=== PATIENT | female | born 1970 | race Caucasian/White ===

== ENCOUNTER 2018-07-20 09:03 | Emergency (ER) | payer BC ==
--- NOTE | 2018-07-20 09:43 | EDM.PDOC ---
ED HPI GENERAL MEDICAL PROBLEM - General Chief Complaint: Cardiovascular Problem Stated Complaint: HEART PALPITATIONS/SOB Time Seen by Provider: 07/20/18 09:20 Source of Information: Reports: Patient History Limitations: Reports: No Limitations - History of Present Illness INITIAL COMMENTS - FREE TEXT/NARRATIVE: 47-year-old female was been feeling palpitations for the last 5 days, this morning while at work felt like she was having more of them and became lightheaded so came in to be checked. She was placed on a monitor and is having fairly frequent PVCs. She doesn't remember having these in the past, only the last 5 days and does admit that she was kayaking yesterday and drinking beer but drink water after she got home. No recent illness, no chest pain, no nausea or vomiting but she does feel short of breath and anxious with the palpitations. Onset: Gradual (Started 5 or 6 days ago but seemed to be worsening) Associated Symptoms: Reports: Shortness of Breath, Other (Dizziness) - Related Data Allergies Allergy/AdvReac Type Severity Reaction Status Date / Time No Known Allergies Allergy Verified 07/20/18 09:11 Home Meds: Home Meds Metoprolol Tartrate [Lopressor] 25 mg PO Q12HR #20 tab 07/20/18 [Rx] Naproxen 375 mg PO DAILY 07/20/18 [History] Past Medical History HEENT History: Reports: Impaired Vision Genitourinary History: Reports: None STUDENT OUTREACH COORDINATOR History: Reports: Musculoskeletal History: Reports: Back Pain, Chronic Psychiatric History: Reports: Depression Endocrine/Metabolic History: Reports: Obesity/BMI 30+ - Past Surgical History Head Surgeries/Procedures: Reports: None GI Surgical History: Reports: Appendectomy Female Surgical History: Reports: Section Endocrine Surgical History: Reports: None Musculoskeletal Surgical History: Reports: None Dermatological Surgical History: Reports: None Social & Family History - Family History Cardiac: Reports: Afib, Arrhythmia, Blood Clots/VTE/DVT, Bypass, Heart Failure, High Cholesterol, Hypertension, Prior Cardiac Arrest - Tobacco Use Smoking Status *Q: Former Smoker Used Tobacco, but Quit: Yes Month/Year Tobacco Last Used: 2005 - Caffeine Use Caffeine Use: Reports: Energy Drinks - Alcohol Use Days Per Week of Alcohol Use: 7 Number of Drinks Per Day: 2 Total Drinks Per Week: 14 - Recreational Drug Use Recreational Drug Use: No ED ROS GENERAL - Review of Systems Review Of Systems: See Below Constitutional: Denies: Fever, Chills Respiratory: Reports: Shortness of Breath Cardiovascular: Reports: Palpitations. Denies: Chest Pain GI/Abdominal: Denies: Abdominal Pain, Nausea, Vomiting Skin: Reports: No Symptoms Neurological: Reports: No Symptoms ED EXAM, GENERAL - Physical Exam Exam: See Below Exam Limited By: No Limitations General Appearance: Alert, Anxious Eye Exam: Bilateral Eye: EOMI Head: Atraumatic Respiratory/Chest: No Respiratory Distress, Lungs Clear Cardiovascular: Regular Rate, Rhythm, Extra Beats GI/Abdominal: Soft, Non-Tender Extremities: No: Pedal Edema Neurological: Alert, Oriented Psychiatric: Anxious Skin Exam: Warm, Dry EKG INTERPRETATION Rhythm: NSR EKG Interpretation Comments: Patient is in a normal sinus rhythm with several PVCs occurring over the span of 1 minute. No V. tach or couplets. O2 saturation on arrival was 100%, she was very anxious. CBC, CMP, troponin were obtained and she was given 1 L of IV fluids. Course - Vital Signs Last Recorded V/S: Last Vital Signs Temp 98.3 F 07/20/18 09:22 Pulse 71 07/20/18 10:25 Resp 17 07/20/18 10:24 BP 146/81 H 07/20/18 10:25 Pulse Ox 98 07/20/18 10:24 - Orders/Labs/Meds Orders: Active Orders 24 hr Category Date Time Status EKG Documentation Completion [RC] ASDIRECTED Care 07/20/18 09:13 Active EKG 12 Lead [EK] Routine Ther 07/20/18 09:13 Ordered Labs: Laboratory Tests 07/20/18 07/20/18 Range/Units 09:13 09:13 WBC 9.4 (4.5-11.0) K/uL RBC 4.12 (3.30-5.50) M/uL Hgb 13.3 (12.0-15.0) g/dL Hct 40.0 (36.0-48.0) % MCV 97 (80-98) fL MCH 32 H (27-31) pg MCHC 33 (32-36) % Plt Count 230 (150-400) K/uL Neut % (Auto) 64 (36-66) % Lymph % (Auto) 21 L (24-44) % [place] % (Auto) 11 H (2-6) % Eos % (Auto) 3 (2-4) % Baso % (Auto) 1 (0-1) % Sodium 137 L (140-148) mmol/L Potassium 3.9 (3.6-5.2) mmol/L Chloride 102 (100-108) mmol/L Carbon Dioxide 27 (21-32) mmol/L Anion Gap 11.9 (5.0-14.0) mmol/L BUN 18 (7-18) mg/dL Creatinine 0.9 (0.6-1.0) mg/dL Est Cr Clr Drug Dosing 75.15 mL/min Estimated GFR (MDRD) > 60 (>60) Glucose 102 (74-106) mg/dL Calcium 8.7 (8.5-10.1) mg/dL Troponin I < 0.017 (0.000-0.056) ng/mL Meds: Medications Discontinued Medications Generic Name Dose Route Start Last Admin Trade Name Freq PRN Reason Stop Dose Admin Sodium Chloride 1,000 mls @ 1,000 mls/hr 07/20/18 09:45 07/20/18 09:51 Normal Saline IV 1,000 mls/hr ASDIRECTED CHIOMA Administration Metoprolol Tartrate 25 mg 07/20/18 10:20 07/20/18 10:25 Lopressor PO 07/20/18 10:21 25 mg ONETIME ONE Administration - Re-Assessments/Exams Free Text/Narrative Re-Assessment/Exam: 07/20/18 10:24 All labs were reassuring, PVCs did tend to slow down slightly but worse persistent. Patient is going to be started on 25 mg of metoprolol twice daily, I discussed her condition with her primary provider and he will recheck her on or Thursday of this week. Departure - Departure Time of Disposition: 10:48 Disposition: Home, Self-Care 01 Condition: Good Clinical Impression: Frequent PVCs Prescriptions: Metoprolol Tartrate [Lopressor] 25 mg PO Q12HR #20 tab Instructions: Premature Ventricular Contraction Referrals: Percy Duenas MD [Primary Care Provider] - Forms: ED Department Discharge Care Plan Goals: Take the metoprolol twice daily and recheck with Dr. Duenas later this week. Return anytime if worsening such as chest pain, increasing shortness of breath or other concerns. - My Orders Last 24 Hours: My Active Orders 07/20/18 09:13 EKG Documentation Completion [RC] ASDIRECTED EKG 12 Lead [EK] Routine - Assessment/Plan Last 24 Hours: My Active Orders 07/20/18 09:13 EKG Documentation Completion [RC] ASDIRECTED EKG 12 Lead [EK] Routine
[2018-07-20] MEDS ORDERED: Sodium Chloride 0.9% 1,000 ML IV SCH (09:45)
[2018-07-20] MEDS ORDERED: Metoprolol Tartrate 25 MG Tab PO ONE (10:20)
== END 2018-07-20 10:47 | disposition home or self-care (01) ==
LOC: JP.ED 09:03
DX: I49.3 Ventricular premature depolarization (principal); Z79.899 Other long term (current) drug therapy; Z87.891 Personal history of nicotine dependence
CPT/HCPCS: 36415; 80048; 84484; 85025; 93005; 96360; 99285; A9270; J7030

== ENCOUNTER 2020-08-06 11:41 | Day surgery (SDC) | payer BC ==
--- OUTSIDE RECORDS SUMMARY | 2020-08-01 10:20 | XMSREPORT | Referral Summary ---
:1970 Author Organization [facility] Address [address] [address] Phone Care Team Providers Name Role Phone MD Henrique Primary Care Provider Reason for Referral Surgery (Routine) Status Reason Specialty Diagnoses / Referred By Referred To Procedures Contact Contact Authorized Prior Auth Diagnoses De Jesus neuroma, right Aelony, Henrique Aelony, Henrique Before Procedures [facility],EA S, DPM S, DPM Scheduling [address] [place] [id number] Phone: Fax: Reason for Visit Reason Comments Recheck rt foot Encounter Details Date Type Department Care Team Description 07/27/2020 [facility] S, DPM De Jesus neuroma, right [facility] [address] [place] [address] (Primary Dx) PODIATRY [id number] [place] [address] [place] [phone] Allergies No Known Allergiesdocumented as of this encounter (statuses as of 08/01/2020) Medications Medication Sig Dispensed Refills Start Date End Date Status oxyCODONE-acetamino Take 1 Tab by mouth 30 Tab 0 02/08/2020 Active phen (Percocet) every six hours as 5-325 MG oral needed for Pain . tablet Acetaminophen should not exceed 4000 mg per day. albuterol HFA INHALE 1-2 PUFFS INTO 90 g 11 02/29/2020 Active (Proair HFA, THE LUNGS EVERY 4 Ventolin HFA) 108 HOURS NEEDED FOR (90 Base) MCG/ACT SHORTNESS OF BREATH, inhalation aerosol SHAKE BEFORE USING HYDROcodone-acetami Take 1 Tab by mouth 30 Tab 0 05/21/2020 Active nophen ([place]) every six hours as 5-325 MG oral needed for Pain . tabletIndications: Acetaminophen should Chronic right-sided be limited to 4000 mg low back pain with per day. right-sided sciatica naproxen (Naprosyn) Take 1 Tab by mouth 180 Tab 3 07/03/2020 Active 500 MG tablet two times a day. WITH FOOD documented as of this encounter (statuses as of 08/01/2020) Active Problems Problem Noted Date COAT: Treatment Agreement signed 05/21/20 05/23/2020 Ventricular premature beats 05/31/2019 IBS (irritable bowel syndrome) 07/27/2012 Chronic back pain 08/13/2011 documented as of this encounter (statuses as of 08/01/2020) Immunizations Name Administration Dates Next Due Hepatitis B, Adult 03/24/2006, 01/07/2006, 12/10/2005 Influenza Seasonal Inj A,B 09/25/2008, 10/14/2006, 3, 09/16/2001 Influenza Seasonal Inj A,B 10/04/2007 Preservative Free TD >7yrs With Preservative 12/27/1996 Tdap >7 years 04/21/2015, 07/27/2012, 08/03/2006 documented as of this encounter Social History Tobacco Use Types Packs/Day Years Used Date Former Smoker Quit: 09/30/20 06 Smokeless Tobacco: Never Used Sex Assigned at Date Recorded Not on file Job Start Date Occupation Industry Not on file Not on file Not on file COVID-19 Exposure Response Date Recorded In the last month, have you been in contact with No / Unsure 07/03/2020 3:01 PM CDT someone who was confirmed or suspected to have Coronavirus / COVID-19? documented as of this encounter Last Filed Vital Signs Vital Sign Reading Time Taken Comments Blood Pressure - - Pulse - - Temperature - - Respiratory Rate - - Oxygen Saturation - - Inhaled Oxygen Concentration - - Weight 85.7 kg (189 lb) 07/30/2020 2:34 PM CDT Height - - Body Mass Index 29.6 05/21/2020 4:30 PM CDT documented in this encounter Progress Notes Henrique Gomez DPM - 07/30/2020 2:30 PM [id number] signed by Henrique Gomez DPM at 08/01/2020 8:31 AM CDTdocumented in this encounter Plan of Treatment Date Type Specialty Care Team Description 08/01/2020 Appointment Internal Medicine Zay Haney, [facility] [address] [place] [address] [phone] 08/13/2020 Appointment Podiatry Henrique Gomez DPM [address] [facility] [address] [address] [phone] 08/27/2020 Appointment Podiatry Henrique Gomez DPM [address] [facility] [address] [address] [phone] documented as of this encounter Visit Diagnoses Diagnosis De Jesus neuroma, right documented in this encounter Insurance Payer Benefit Plan / Subscriber ID Effective Dates Phone Addre ss Type Group [employer] [facility] [id number] 2019-Long [employer] S [employer] t PROGRAM [employer] documented as of this encounter
[~2020-08-06 11:41] MED LIST: Bupivacaine 0.5% 30 ML SDV ONE; Lidocaine 2% 20 ML MDV ONE; Midazolam 1 MG/ML 2 ML SDV ONE; Propofol 200 MG/20 ML SDV ONE; fentaNYL 100 MCG/2 ML SDV ONE
[2020-08-06] MEDS ORDERED: Lactated Ringers 1,000 ML IV SCH (12:30)
[2020-08-06] MEDS ORDERED: ceFAZolin 2 GM in Premix Bag 1 BAG IV ONE (13:00)
[2020-08-06] MEDS ORDERED: Propofol 200 MG/20 ML SDV ONE (13:28)
--- NOTE | 2020-08-06 17:58 | OR ---
DATE OF PROCEDURE: 08/06/2020 SURGEON: Henrique Gomez DPM RESERVATION SALES AGENT: None. 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 PROCEDURE: Excision of neuroma, right 3rd intermetatarsal space. ANESTHESIA: Local with IV sedation. HEMOSTASIS: Obtained with an ankle tourniquet on the right ankle at 250 mmHg. ESTIMATED BLOOD LOSS: 5 mL. MATERIALS: None. INJECTABLES: A total of 10 mL of 1:1 mixture of Marcaine 0.5% plain and lidocaine 2% plain was injected preoperatively. PATHOLOGY: Soft tissue mass was sent. CONDITION: Stable. INDICATIONS FOR SURGERY: Painful neuroma on the right 3rd intermetatarsal space that was unresponsive to conservative measures. PROCEDURE IN DETAIL: The patient was brought to the operating room, placed on the operating table in supine position. Following IV sedation, anesthesia was obtained with a total of 10 mL of 1:1 mixture of lidocaine 2% plain, Marcaine 0.5% plain. The right foot was scrubbed, prepped, and draped in the usual aseptic manner, raised to 60 degrees for hemostasis and exsanguinated using Esmarch bandage. Tourniquet was inflated. Foot was lowered to table. Skin incision was made on the dorsal aspect of the right 3rd intermetatarsal space and carried up onto the base of the right 4th toe. Incisions were deepened through subcutaneous tissues with care taken to identify and retract all vital neurovascular structures. With both sharp and blunt dissection, the neuroma was identified and the distal, medial, and lateral branches of it were identified and then resected and then it was carefully dissected proximally as far proximal as possible beyond the 3rd and 4th metatarsal heads and then resected. We then checked to make sure that the neuroma was completely removed through visual examination and palpation and all of it had been, so then the incision was flushed out with copious amounts of sterile saline. Subcutaneous closure was done with 3-0 Vicryl in a box stitch and then skin closure was done with 4-0 nylon in a horizontal mattress stitch and then the foot was dressed with Xeroform, 4x4s, Kerlix, and Coban. The patient was returned to the recovery room with vital signs stable and vascular status intact to both feet. The patient was told to maintain a partial weightbearing with weight only on the heel and right foot in a Cam boot and ambulate with crutches and return to clinic. Keep dressings clean, dry, and intact. Return to clinic in 1 week, at which time, she will be re-evaluated and also to go to the emergency room immediately if she has any nausea, vomiting, fever, chills, chest pain, calf pain, or difficulty breathing. Henrique Gomez DPM /[id number]
== END 2020-08-06 14:30 | disposition home or self-care (01) ==
LOC: JP.SDS 11:41
PROVIDERS: ATTEND Podiatrist Foot & Ankle Surgery
DX: G57.81 Other specified mononeuropathies of right lower limb (principal); Z87.891 Personal history of nicotine dependence
CPT/HCPCS: 64782; 81025; J2001; J2250; J2704; J3010; J3490; J7120

== ENCOUNTER 2024-03-01 08:53 | Day surgery (SDC) | payer BC ==
[2024-03-01] MEDS ORDERED: Midazolam 1 MG/ML 2 ML SDV ONE (10:22)
[2024-03-01] MEDS ORDERED: fentaNYL 50 MCG/ML SDV ONE (10:22)
[2024-03-01] MEDS ORDERED: Propofol 200 MG/20 ML SDV ONE (10:22)
[2024-03-01] MEDS: Lactated Ringers 1,000 ML IV SCH (10:45)
== END 2024-03-01 12:58 | disposition home or self-care (01) ==
LOC: JP.SDS 08:53
PROVIDERS: ATTEND Family Medicine
DX: K64.4 Residual hemorrhoidal skin tags (principal); K64.8 Other hemorrhoids; R10.32 Left lower quadrant pain; Z87.891 Personal history of nicotine dependence; Z79.899 Other long term (current) drug therapy; Z98.890 Other specified postprocedural states
CPT/HCPCS: 45378; J2250; J2704; J3010; J7120

== ENCOUNTER 2024-03-18 07:23 | Day surgery (SDC) | payer BC ==
[2024-03-18] MEDS ORDERED: Midazolam 1 MG/ML 2 ML SDV ONE (07:26)
[2024-03-18] MEDS ORDERED: Propofol 200 MG/20 ML SDV ONE ×2 (07:26→08:31)
[2024-03-18] MEDS ORDERED: fentaNYL 100 MCG/2 ML SDV ONE (07:26)
[2024-03-18] MEDS: Sodium Chloride 0.9% 1,000 ML IV SCH (07:50)
[2024-03-18] MEDS: metroNIDAZOLE/Normal Saline 500 MG in Premix Bag 1 BAG IV ONE (07:55)
[2024-03-18] MEDS: Lidocaine 2% Jelly 10 ML Urojet ONE (08:35)
[2024-03-18] MEDS: Bupivacaine 0.5% 50 ML MDV ONE (08:35)
[2024-03-18] MEDS: Lidocaine 1% with EPINEPHrine 1:100,000 50 ML MDV ONE (08:35)
[2024-03-18] MEDS: ceFAZolin 2 GM in Premix Bag 1 BAG IV ONE (09:21)
== END 2024-03-18 09:55 | disposition home or self-care (01) ==
LOC: JP.SDS 07:23
PROVIDERS: ATTEND Surgery
DX: K64.4 Residual hemorrhoidal skin tags (principal)
CPT/HCPCS: 00902; 46999; J0665; J0690; J1836; J2250; J2704; J3010; J7030; 88304